=== PATIENT | female | born 1980 | race Caucasian/White ===

== ENCOUNTER 2016-08-18 14:29 | Emergency (ER) | payer MEDICAID ==
--- NOTE | 2016-08-18 15:57 | EDPHY ---
H & P Time Seen by Provider: 08/18/16 14:44 HPI/ROS: This a 35-year-old female presenting to emergency department complaining of intermittent productive cough chest wall pain with deep inspiration times 2-3 days, 1 day of fever which has resolve. She also reports left ear pressure and intermittent runny nose is which is clear. She states she has been intermittently taking ibuprofen but not on a regular basis. Denies any or shortness of breath, no other complaints REVIEW OF SYSTEMS: Constitutional: Fever but has resolved, positive for fatigue, no changes in normal ADLs ENT: Intermittent sore throat with left ear pressure Respiratory: Intermittent cough times 2-3 days Cardiac: Right anterior chest wall pain with cough Gastrointestinal: No nausea vomiting Musculoskeletal: Chest wall pain with cough Skin: No rash or lesions Neurological: Intermittent headache with cough Smoking Status: Current every day smoker Physical Exam: CONSTITUTIONAL: patient appeared well nourished, non-ill appearing and normally developed. No acute distress. Vital signs as documented. HEENT: NCAT. TMs bilateral middle ear non serous effusion. Oropharynx erythema noted, no tonsillar swelling or exudates NECK: Supple, FROM without pain RESP: Non-labored resp effort, airway patent, CTAB, positive cough noted CARDIAC: RRR w/o murmur, sky. Right anterior chest wall tenderness on palpation NEURO: AAOx3 EXTREMITIES: FROM without pain or difficulty. SKIN: Warm and dry, no rash noted LYMPH: No lymphadenopathy PSYCH: Normal affect, calm, no distress. Patient acting age appropriate Constitutional: Initial Vital Signs Temperature (C) 36.8 C 08/18/16 14:30 Heart Rate 83 08/18/16 14:30 Respiratory Rate 18 08/18/16 14:30 Blood Pressure 135/86 H 08/18/16 14:30 O2 Sat (%) 95 08/18/16 14:30 O2 Delivery Mode Room Air Allergies/Adverse Reactions: No Known Allergies Allergy (Unverified 08/18/16 14:38) Home Medications: Medication Instructions Recorded NK [No Known Home Meds] 08/18/16 Medical Decision Making - Diagnostics Imaging: History: Chest pain, cough Comparison: None. Findings: Cardiac silhouette is within normal range. Bilateral peribronchial thickening. No pneumonia, congestive heart failure, pleural effusion, or pneumothorax. Impression: 1. Bronchitis. 2. No definite pneumonia. ED Course/Re-evaluation: Discussed plan of care: Chest x-ray ordered discussed findings with patient bronchitis but no pneumonia. Discharge home---> stable, discussed discharge instructions with patient Differential Diagnosis: Differential diagnosis considered but not limited to pneumonia pneumothorax and pleural effusion Departure - Departure Disposition: Home, Routine, Self-Care Clinical Impression: Viral syndrome, Bronchitis URI (upper respiratory infection) Qualifiers: URI type: unspecified viral URI Qualified Code(s): J06.9 - Acute upper respiratory infection, unspecified Condition: Good Instructions: Upper Respiratory Infection (ED), Viral Syndrome (ED), Cold Symptoms (ED), Acute Bronchitis (ED) Additional Instructions: 1. Follow up with your primary care physician next week 2. Ibuprofen and Tylenol as needed 3. Gargle with warm salt water, hot tea with lemon and honey throat lozenges may be beneficial 4. you can take Robitussin DM, or Mucinex DM which both contain dextromethorphan to help suppress cough 5. If any symptoms worsen: Shortness of breath increased chest pain return to the emergency department. Stop smoking Referrals: Zaria Cope PA [Primary Care Provider] - As per Instructions
[2016-08-18 16:24] VITALS: BP 144/76; PULSE 81; RESP 16; TEMP 97.2; O2SAT 98
== END 2016-08-18 16:26 | disposition home or self-care (01) ==
DX: J40 Bronchitis, not specified as acute or chronic (principal); J06.9 Acute upper respiratory infection, unspecified; B34.9 Viral infection, unspecified; F17.200 Nicotine dependence, unspecified, uncomplicated

== ENCOUNTER 2016-10-13 09:13 | Emergency (ER) | payer MEDICAID ==
[2016-10-13 09:20] VITALS: TEMP 97.9; O2SAT 96
--- NOTE | 2016-10-13 09:47 | EDPHY ---
H & P Time Seen by Provider: 10/13/16 09:26 HPI/ROS: CHIEF COMPLAINT: Puncture wound from open bore needle, "I'm freaking out" HISTORY OF PRESENT ILLNESS: 35-year-old hepatitis C positive female states that yesterday she was helping an HIV-positive friend move when she sustained an accidental puncture wound to her right dorsal hand from a recently used needle. There was no visible blood on the needle. She does not know the source patient's affect viral load and/or CD4 count but does know a name and believes that the source patient goes to [facility]. The patient has up-to- date tetanus. Patient has no known history of HIV. She has been tested for HIV most recently a few years ago and has not engaged in IV drug use in several years. She has been in a monogamous relationship with her partner who has also had negative HIV testing. PRIMARY CARE PROVIDER: Zaria Cope PHYSICAL EXAM (Prior to examination, patient consented to physical exam, hands were washed and my usual and customary physical exam procedures followed) 1) GENERAL: Well-developed, well-nourished, alert and oriented. Appears anxious 2) HEAD: Normocephalic 3) HEENT: sclera anicteric 4) LUNGS: Breathing comfortably. 5) SKIN: right hand no signs of infection. No visible puncture wound. No crepitus. 6) MUSCULOSKELETAL: full range of motion of the right hand with signs of infection Smoking Status: Current every day smoker Constitutional: Initial Vital Signs Temperature (C) 36.6 C 10/13/16 09:17 Heart Rate 69 10/13/16 09:17 Respiratory Rate 10/13/16 09:17 Blood Pressure 132/70 H 10/13/16 09:17 O2 Sat (%) 96 10/13/16 09:17 O2 Delivery Mode Room Air Allergies/Adverse Reactions: No Known Allergies Allergy (Unverified 10/13/16 09:16) Home Medications: Medication Instructions Recorded Emtricitabine/Tenofovir (Tdf) 1 each PO DAILY #4 tablet 10/13/16 [Truvada 200 mg-300 mg Tablet] Raltegravir [Isentress] 400 mg PO BID #8 tab 10/13/16 MDM/Departure - MDM Medications Given: Discontinued Medications Raltegravir (Isentress) 400 mg PO EDNOW ONE Stop: 10/13/16 10:08 Last Admin: 10/13/16 11:03 Dose: 400 mg ED Course/Re-evaluation: 9:57 a.m.: Phone consultation with Dr. Katja Khalil who recommended obtaining baseline blood work and started the patient on Truvada and ISENTRESS having the patient follow up on Saturday as Saturday is holiday (today is Saturday). Patient is agreeable with this plan. - Depart Disposition: Home, Routine, Self-Care Clinical Impression: HIV exposure Condition: Good Instructions: HIV Transmission (ED) Additional Instructions: Do not engage in unprotected intercourse until cleared by the infectious disease doctors. Prescriptions: Emtricitabine/Tenofovir (Tdf) [Truvada 200 mg-300 mg Tablet] 1 each PO DAILY #4 tablet Raltegravir [Isentress] 400 mg PO BID #8 tab Referrals: Katja Meza MD [Medical Doctor] - 10/16/16 (I spoke with Dr Meza from the [facility]. She wants to see you on Saturday. They have your contact information. Call the clinic on Saturday morning. )
[2016-10-13] MEDS ORDERED: RALTEGRAVIR 400 MG TAB PO ONE (10:07)
[2016-10-13] MEDS ORDERED: EMTRICITABINE/TENOFOVIR 200MG/300MG TAB PO ONE (10:13)
[2016-10-13 10:55] LABS: % IMMATURE GRANULYOCYTES 0.2 % (0.0-1.1); ABSOLUTE IMMATURE GRANULOCYTES 0.02 10^3/uL (0.00-0.10); ADD DIFF? NO; ADD MORPH? NO; ADD SCAN? NO; ATYPICAL LYMPHOCYTE FLAG 20 (0-99); FRAGMENT RBC FLAG 0 (0-99); HEMATOCRIT 42.6 % (38.0-47.0); HEMOGLOBIN 14.2 g/dL (12.6-16.3); LEFT SHIFT FLG 0 (0-99); LIPEMIA HEMOLYSIS FLAG 80 (0-99); MEAN CELL HEMOGLOBIN 30.5 pg (27.9-34.1); MEAN CELL HEMOGLOBIN CONCENTR. 33.3 g/dL (32.4-36.7); MEAN CELL VOLUME 91.6 fL (81.5-99.8); MEAN PLATELET VOLUME 10.9 fL (8.7-11.7); PLATELET CLUMPS FLAG 0 (0-99); PLATELET COUNT 224 10^3/uL (150-400); RED BLOOD CELL COUNT 4.65 10^6/uL (4.18-5.33); RED CELL DISTRIBUTION WIDTH 12.9 % (11.5-15.2)
[2016-10-13 11:23] LABS: BHCG-QUALITATIVE NEGATIVE
[2016-10-13 11:35] LABS: ALANINE AMINOTRANSFERASE 123 IU/L (9-52); ALBUMIN 4.5 g/dL (3.5-5.0); ALKALINE PHOSPHATASE 73 IU/L (38-126); ANION GAP 13 mEq/L (8-16); ASPARTATE AMINOTRANSFERASE 87 IU/L (14-46); BILIRUBIN,TOTAL 0.8 mg/dL (0.1-1.4); BILIRUBIN-CONJUGATED 0.4 mg/dL (0.0-0.5); BILIRUBIN-UNCONJUGATED 0.4 mg/dL (0.0-1.1); CALCIUM 9.5 mg/dL (8.5-10.4); CARBON DIOXIDE 24 mEq/l (22-31); CHLORIDE 104 mEq/L (97-110); CREATININE 0.7 mg/dL (0.6-1.0); GLOMERULAR FILTRATION RATE > 60; GLUCOSE 76 mg/dL (70-100); POTASSIUM 4.8 mEq/L (3.5-5.2); SODIUM 141 mEq/L (134-144); TOTAL PROTEIN 7.7 g/dL (6.3-8.2)
[2016-10-13 12:01] VITALS: BP 141/91; PULSE 71; RESP 16
[2016-10-14] MEDS ORDERED: EMTRICITABINE/TENOFOVIR 200MG/300MG TAB PO ONE (10:07)
[2016-10-16 03:46] LABS: HEPATITIS B SURFACE ANTIBODY NEGATIVE (NEGATIVE)
== END 2016-10-13 12:00 | disposition home or self-care (01) ==
DX: Z20.6 Contact with and (suspected) exposure to human immunodeficiency virus [HIV] (principal); F17.200 Nicotine dependence, unspecified, uncomplicated
CPT/HCPCS: G0472

== ENCOUNTER 2018-07-05 20:22 | Emergency (ER) | payer MEDICAID ==
[2018-07-05 20:32] VITALS: BP 160/86
--- NOTE | 2018-07-05 20:58 | EDPHY ---
General - History Smoking Status: Former smoker Time Seen by Provider: 07/05/18 20:50 Narrative: CLINICAL IMPRESSION: Left groin pain, tender lymphadenopathy ASSESSMENT/PLAN: Patient is a 37-year-old female who presents for concerns of recurrent wound infection in her left groin. Patient is afebrile and not toxic appearing, no acute distress. Physical exam reveals tender, mildly enlarged lymph nodes in the left groin without overlying erythema or calor. She had no tenderness to palpation of the left hip, there was no pain with passive or active range of motion of the left hip; no findings to suggest septic joint. Her ultrasound was reviewed from her visit on June 21 which revealed mild enlarged inguinal lymph nodes without evidence of fluid collection. History and physical examination is consistent with left groin pain and tender lymphadenopathy which could be ongoing and secondary to recent infection. There was no evidence of systemic infection, cellulitis, abscess, necrotizing skin infection or deep space infection. No indication for adding antibiotic therapy today for additional imaging. She is well established with her PCP and already has an appointment scheduled this coming Saturday for repeat examination. Return precautions discussed- she will return for fever, redness, swelling, warmth, or streaking around the wound, new lesions, extremity swelling , pain out of proportion or for any other new, worsening or worrisome symptoms. Patient verbalizes understanding and he is in agreement with plan. DIFFERENTIAL DX: Differential diagnosis includes but not limited to cellulitis, abscess, deep space infection, lymphadenitis, lymphoma, traumatic injury, septic joint ED COURSE: 2105: Case reviewed with Dr. Venegas. CHIEF COMPLAINT: Left groin pain, tender lymph nodes, concern for infection HPI: Patient is a 37-year-old female with a history of cutaneous MRSA and history of left inguinal adenopathy several years prior who presents to the emergency department with recurrent pain and concerns for recurrent infection since seen in the emergency department. Patient was seen and evaluated on the June 21 with complaints of left groin pain and erythema for 3 days. Patient was diagnosed with cellulitis and prescribed dual antibiotic therapy which she completed 3 days ago. Patient was feeling better however over the last day she started to notice some increased discomfort in her groin similar to when her cellulitis started earlier this month. She denies any fevers, chills, redness to the area, swelling in her groin or abdominal pain. Patient presents complaining of tenderness to the lymph nodes with radiation to her hip. PAST MEDICAL HISTORY: MRSA cutaneous infection Family History: Noncontributory Social History: Former smoker ROS: A full 10 point review of systems was negative except for those mentioned in HPI. PHYSICAL EXAM: General Appearance: Well-appearing, no acute distress. HEENT: Normocephalic, atraumatic. External ears are normal. TMs are clear bilaterally no perforation or FB, no injection, no evidence of serous or mucopurulent otitis. Oropharynx clear is no erythema or exudates, no tonsillar hypertrophy or asymmetry. Eyes: PERRLA, no acute vision change, nystagmus, swelling, discharge, pain or photosensitivity. Conjunctiva pink, no pallor or injection Neck: Supple, nontender, no lymphadenopathy, no midline pain, FROM, no meningismus. Respiratory: There are no retractions, lungs are clear to auscultation. Cardiac: Regular rate and rhythm, no murmurs or gallops. Gastrointestinal: Abdomen is soft, nontender, bowel sounds normal, no masses/ hernia, no rigidity, guarding or focal peritoneal findings. Patient with very small palpable lymph nodes in her left groin, mildly tender to palpation. Left groin with no erythema, fluctuance, vesicles, lesions or wounds. Skin: Warm, dry, no rashes, no nodules on palpation. Back: No step-off, palpable bony abnormality, edema, erythema or ecchymosis of the cervical, thoracic or lumbar spines. No tenderness to palpation of the midline thoracic or lumbar spines. 5/5 and equal strength of the UEs and LEs bilaterally including shoulder shrug. Pulses: 2+ and equal radial, DP and PT pulses bilaterally. Sensation intact and symmetric to light touch from face, UEs and LEs bilaterally. Straight leg raise negative bilaterally. Her pelvis is stable, there is no tenderness to palpation in her hip, she has full range of motion of her left hip. There is no pain elicited with either passive or active range of motion. MEDICAL DECISION MAKING: Patient was seen independently. Secondary supervising physician at time of evaluation was Dr. Venegas, he did not evaluate this patient. Diagnosis: Tender lymphadenopathy. New, requires workup Summary: See Assessment and Plan for summary of ED visit Clinical lab tests: Not applicable. Independent visualization of images, tracing, or specimens: Not applicable. Decision to obtain medical records or history from someone other than the patient: No Review / Summarize previous medical records: Yes Discussed patient with another provider: Yes, Dr. Venegas Patient Progress: Stable, discharge. (Berenice Zavala) Medical Decision Making: I did not see this patient while she was in the emergency department. However her care was discussed with PA while the patient was in the department. I agree with treatment plan and management (Vincenzo Venegas) - Objective Vital Signs: Initial Vital Signs Temperature (C) 36.7 C 07/05/18 20:26 Heart Rate 63 07/05/18 20:26 Respiratory Rate 16 07/05/18 20:26 Blood Pressure 160/86 H 07/05/18 20:26 O2 Sat (%) 96 07/05/18 20:26 O2 Delivery Mode Room Air Allergies/Adverse Reactions: No Known Allergies Allergy (Verified 07/05/18 20:32) Home Medications: Medication Instructions Recorded Methadone HCl [Methadone 5 mg (RX)] 5 mg PO 04/16/14 Aspirin 81mg (*) 07/05/18 Departure - Departure Disposition: Home, Routine, Self-Care Clinical Impression: Tenderness of lymph node Condition: Good Instructions: Lymphadenopathy (ED) Additional Instructions: DISCHARGE INSTRUCTIONS FROM YOUR DOCTOR Thank you for visiting our emergency department today. Please keep in mind that discharge from the emergency department does not mean that there is nothing wrong - it simply means that we have not identified an emergency condition that requires further evaluation or treatment in the hospital. You should always plan to follow up with primary care for re-evaluation of your condition in the next 2-3 days. Please follow-up with your primary care provider as scheduled next Saturday. For pain control: You may take Tylenol, I recommend 500-1000 mg every 6-8 hours as needed. Take with food and a full glass of water. Stop taking if this is upsetting her stomach. Do not exceed 4000 mg in a 24 hr period. You may also take ibuprofen, recommend 400 mg every 6 hr. Take with food and a full glass of water. Stop taking if this upsets her stomach. Do not exceed 2400 mg in a 24 hr period. People present with illnesses and injuries in different ways, and it is always possible that we have missed something. You may always return for re-evaluation if symptoms worsen or if they are not improving or if you develop new/different symptoms. Again, thank you for choosing our emergency department. We hope that you feel better. Referrals: Zaria Cope PA [Primary Care Provider] - As per Instructions
== END 2018-07-05 21:20 | disposition home or self-care (01) ==
DX: R10.32 Left lower quadrant pain (principal); R59.0 Localized enlarged lymph nodes; Z86.14 Personal history of Methicillin resistant Staphylococcus aureus infection; F17.200 Nicotine dependence, unspecified, uncomplicated